=== PATIENT | male | born 1970 ===

== ENCOUNTER 2017-08-17 11:47 | Emergency (ER) | payer SELFPAY ==
[2017-08-17] MEDS ORDERED: Ketorolac 60 MG/2 ML SDV IM ONE (12:54)
[2017-08-17] MEDS ORDERED: Acetaminophen 500 MG Tab PO ONE (12:54)
--- NOTE | 2017-08-17 12:57 | EDM.PDOC ---
ED HPI GENERAL MEDICAL PROBLEM - General Chief Complaint: Headache Stated Complaint: HIGH BLOOD PRESSURE Time Seen by Provider: 08/17/17 12:47 - History of Present Illness INITIAL COMMENTS - FREE TEXT/NARRATIVE: HISTORY AND PHYSICAL: History of present illness: The patient is a 47-year-old male with a history of hypertension who was been off his blood pressure medications for at least 8 months as he states he's been working so much has not been able to go get a refill. He presents today with elevated blood pressure and concern about a left sided headache at the back of his had been ongoing for the last 15 days. He says it comes and goes in intensity and he is able to sleep but as the day progresses it seems to get worse and it extends down into his neck. It is worse with movement of his head and neck. He has no neurosensory changes or weakness in his extremities no dizziness lightheadedness nausea vomiting chest pain or shortness of breath. Patient is already taken aspirin intermittently for the headache. He does not have a local provider that he sees. He admits that he does eat a lot of salty foods. He has not any fevers or upper respiratory symptoms. Patient states that in the past he was on losartan but he does not know the dosing Review of systems: As per history of present illness and below otherwise all systems reviewed and negative. Past medical history: As per history of present illness and as reviewed below otherwise noncontributory. Surgical history: As per history of present illness and as reviewed below otherwise noncontributory. Social history: No reported history of drug or alcohol abuse. Family history: As per history of present illness and as reviewed below otherwise noncontributory. Physical exam: Gen.: Well-developed well-nourished man who is nontoxic and vital signs been reviewed by me HEENT: Atraumatic, normocephalic, pupils reactive, negative for conjunctival pallor or scleral icterus, mucous membranes moist, throat clear, neck supple, no cervical adenopathy or nuchal rigidity nontender, trachea midline. There is no discrete scalp tenderness and there is some reproducible tenderness to palpation of the left side of his paraspinal muscles extending into the trapezius. Lungs: Clear to auscultation, breath sounds equal bilaterally, chest nontender. Heart: S1S2, regular rate and rhythm no overt murmurs Abdomen: Soft, nondistended, nontender. NABS. Pelvis: Stable nontender. Genitourinary: Deferred. Rectal: Deferred. Extremities: Atraumatic, negative for cords or calf pain. Neurovascular unremarkable. No pedal edema Neuro: Awake, alert, oriented. Cranial nerves II through XII unremarkable. Cerebellum unremarkable. Motor and sensory unremarkable throughout. Exam nonfocal. Diagnostics: CT scan of the head CBC CMP Therapeutics: Toradol Tylenol I discussed with the patient restarting his losartan and getting follow-up appointment in our clinic to recheck his blood pressure and his headache symptoms. I will advise [id number] Tylenol use as well as having him some tramadol for headache pain. I stressed reasons to return to the ED Impression: Headache, hypertension with history of medication noncompliance Definitive disposition and diagnosis as appropriate pending reevaluation and review of above. Headache Pain Score (Numeric/FACES): 9 - Related Data Allergies Allergy/AdvReac Type Severity Reaction Status Date / Time No Known Allergies Allergy Verified 08/17/17 11:57 Home Meds: Home Meds . [No Known Home Meds] 08/17/17 [History] Past Medical History Cardiovascular History: Reports: Hypertension Social & Family History - Tobacco Use Smoking Status *Q: Never Smoker Second Hand Smoke Exposure: No - Caffeine Use Caffeine Use: Reports: Other - Recreational Drug Use Recreational Drug Use: No ED ROS GENERAL - Review of Systems Review Of Systems: ROS reveals no pertinent complaints other than HPI. ED EXAM, GENERAL - Physical Exam Exam: See Below (see dictation) Course - Vital Signs Last Recorded V/S: Last Vital Signs Temp 36.8 C 08/17/17 11:59 Pulse 80 08/17/17 12:55 Resp 14 08/17/17 12:55 BP 162/118 H 08/17/17 12:55 Pulse Ox 97 08/17/17 12:55 - Orders/Labs/Meds Labs: Laboratory Tests 08/17/17 08/17/17 Range/Units 13:01 13:01 WBC 7.77 (4.0-11.0) K/uL RBC 5.50 (4.50-5.90) M/uL Hgb 17.2 H (13.0-17.0) g/dL Hct 47.9 (38.0-50.0) % MCV 87.1 (80.0-98.0) fL MCH 31.3 (27.0-32.0) pg MCHC 35.9 (31.0-37.0) g/dL RDW Std Deviation 42.8 (28.0-62.0) fl RDW Coeff of Samina 13 (11.0-15.0) % Plt Count 214 (150-400) K/uL MPV 10.10 (7.40-12.00) fL Neut % (Auto) 56.7 (48.0-80.0) % Lymph % (Auto) 32.4 (16.0-40.0) % [place] % (Auto) 9.1 (0.0-15.0) % Eos % (Auto) 1.7 (0.0-7.0) % Baso % (Auto) 0.1 (0.0-1.5) % Neut # (Auto) 4.4 (1.4-5.7) K/uL Lymph # (Auto) 2.5 H (0.6-2.4) K/uL [place] # (Auto) 0.7 (0.0-0.8) K/uL Eos # (Auto) 0.1 (0.0-0.7) K/uL Baso # (Auto) 0.0 (0.0-0.1) K/uL Nucleated RBC % 0.0 /100WBC Nucleated RBCs # 0 K/uL Sodium 140 (136-146) mmol/L Potassium 4.3 (3.5-5.1) mmol/L Chloride 106 (98-110) mmol/L Carbon Dioxide 26 (21-31) mmol/L BUN 14 (6.0-23.0) mg/dL Creatinine 1.0 (0.6-1.5) mg/dL Est Cr Clr Drug Dosing 85.38 mL/min Estimated GFR (MDRD) > 60.0 ml/min Glucose 99 (60-110) mg/dL Calcium 9.8 (8.8-10.8) mg/dL Total Bilirubin 0.7 (0.1-1.5) mg/dL AST 23 (5-40) IU/L ALT 38 (8-54) IU/L Alkaline Phosphatase 94 (40-150) Total Protein 7.6 (6.0-8.0) g/dL Albumin 4.2 (3.5-5.0) g/dL Globulin 3.4 (2.0-3.5) g/dL Albumin/Globulin Ratio 1.2 L (1.3-2.8) Meds: Medications Discontinued Medications Generic Name Dose Route Start Last Admin Trade Name Familia PRN Reason Stop Dose Admin Acetaminophen 1,000 mg 08/17/17 12:54 08/17/17 13:21 Tylenol Extra Strength PO 08/17/17 12:55 1,000 mg ONETIME ONE Administration Ketorolac Tromethamine 60 mg 08/17/17 12:54 08/17/17 13:21 Toradol IM 08/17/17 12:55 60 mg ONETIME ONE Administration Departure - Departure Time of Disposition: 13:34 Disposition: Home, Self-Care 01 Condition: Good Clinical Impression: Noncompliance with medication regimen Hypertension Qualifiers: Hypertension type: unspecified Qualified Code(s): I10 - Essential (primary) hypertension Headache Qualifiers: Headache type: unspecified Headache chronicity pattern: episodic headache Intractability: not intractable Qualified Code(s): R51 - Headache - Discharge Information Referrals: PCP,None [Primary Care Provider] - Forms: ED Department Discharge Additional Instructions: The following information is given to patients seen in the emergency department who are being discharged to home. This information is to outline your options for follow-up care. We provide all patients seen in our emergency department with a follow-up referral. The need for follow-up, as well as the timing and circumstances, are variable depending upon the specifics of your emergency department visit. If you don't have a primary care physician on staff, we will provide you with a referral. We always advise you to contact your personal physician following an emergency department visit to inform them of the circumstance of the visit and for follow-up with them and/or the need for any referrals to a consulting specialist. The emergency department will also refer you to a specialist when appropriate. This referral assures that you have the opportunity for followup care with a specialist. All of these measure are taken in an effort to provide you with optimal care, which includes your followup. Under all circumstances we always encourage you to contact your private physician who remains a resource for coordinating your care. When calling for followup care, please make the office aware that this follow-up is from your recent emergency room visit. If for any reason you are refused follow-up, please contact the [facility] emergency department at and ask to speak to the emergency department charge nurse. [facility] Primary care- Internal Medicine and Family [address] [address] Please call the clinic tomorrow at 8 AM to get a follow-up appointment to recheck your blood pressure and your symptoms. Please restart your losartan and take it daily as prescribed. Please use [id number] Tylenol or ibuprofen for headache pain and at the tramadol as needed. Return to ER as needed and as discussed
[2017-08-17 13:23] LABS: CHLORIDE,CL 106 mmol/L (98-110); SODIUM,NA 140 mmol/L (136-146)
--- NOTE | 2017-08-17 13:31 | CT ---
EXAMINATION: Non contrast CT head. Coronal and sagittal reformats. HISTORY: Pain FINDINGS: No evidence of intra or extra axial hemorrhage, mass, midline shift, hydrocephalus or edema. No hypoattenuation changes in the major vascular territories to suggest acute infarct. No abnormal intracranial calcifications are detected. No evidence of substantial vascular calcificat ions. Paranasal sinuses and mastoid air cells are essentially well aerated without substantial findings. T he orbits and globes are symmetric. Pituitary fossa appears unremarkable. Calvarium is intact. No evidence of skull fracture. IMPRESSION: No acute intracranial findings.
== END 2017-08-17 14:01 | disposition home or self-care (01) ==
LOC: MW.ED 11:47
DX: I10 Essential (primary) hypertension (principal); R51 Headache; Z91.14 Patient's other noncompliance with medication regimen
CPT/HCPCS: 36415; 70450; 80053; 85025; 96372; 99284; A9270; J1885